=== PATIENT | male | born 1975 | race Caucasian/White ===

== ENCOUNTER → 2022-02-21 02:44 | Outpatient (CLI) | payer OTHER, SELFPAY ==
--- NOTE | 2022-02-21 14:30 | DI.RAD_ITS ---
Exam(s) XR CERVICAL SPINE COMP 4-5V EXAM: XR CERVICAL SPINE COMP 4-5V CLINICAL HISTORY: ARTHRITIS, M13.80, VES #[id number]. TECHNIQUE: 2D digital imaging was performed. Five images were obtained. AP, odontoid, lateral and bi lateral oblique images were obtained. COMPARISON: No exams were available for comparison FINDINGS: The odontoid is intact. The lateral masses are well aligned. There is normal alignment of the cervi adebayo spine. The vertebral bodies and posterior elements are well maintained. At C5-C6 there is disc space narrowing and small endplate osteophytes. The remaining disc levels are unremarkable. No acut e fracture or subluxation is present. No significant neural foraminal stenosis is present. The cervi adebayo thoracic junction is well maintained. The prevertebral soft tissues are unremarkable. Lung apice s are clear. IMPRESSION: Mild cervical spondylosis. DATA REPOSITORY: RADIATION DOSE DELIVERED:
== END ==
PROVIDERS: Visit Provider Chiropractor
DX: M47.812 Spondylosis without myelopathy or radiculopathy, cervical region (principal); M13.88 Other specified arthritis, other site
CPT/HCPCS: 72050

== ENCOUNTER 2022-02-21 05:23 | Outpatient (CLI) | payer OTHER, SELFPAY ==
[2022-02-21] MEDS: Albuterol HFA 18 GM 200 PUFF INH IH (15:30)
[2022-02-21] MEDS: Inhaler, Assist Device 1 EACH MC (15:30)
== END 2022-02-21 05:24 | disposition home or self-care (01) ==
PROVIDERS: Visit Provider Chiropractor
DX: Z02.71 Encounter for disability determination (principal); R06.09 Other forms of dyspnea
CPT/HCPCS: 94060